=== PATIENT | male | born 1950 ===

== ENCOUNTER 2020-06-22 10:34 | Outpatient (CLI) | payer OTHER | END 2020-06-22 10:37 | disposition home or self-care (01) | LOC: SONOGRAMA 10:34 | PROVIDERS: ATTEND Pathology Anatomic Pathology & Clinical Pathology | DX: D34 Benign neoplasm of thyroid gland (principal); E04.1 Nontoxic single thyroid nodule; E07.89 Other specified disorders of thyroid; R59.0 Localized enlarged lymph nodes ==